=== PATIENT | female | born 1945 | race Caucasian/White ===

== ENCOUNTER → 2016-09-24 | Outpatient (CLI) | payer MEDICARE, BC | LOC: MC.RAD 09-21 09:20 | DX: Z12.31 Encounter for screening mammogram for malignant neoplasm of breast (principal); D24.2 Benign neoplasm of left breast; D24.1 Benign neoplasm of right breast ==

== ENCOUNTER → 2017-02-08 | Outpatient (CLI) | payer MEDICARE, BC | LOC: COL.RAD 13:23 | DX: N30.21 Other chronic cystitis with hematuria (principal); R18.8 Other ascites; R39.198 Other difficulties with micturition ==

== ENCOUNTER → 2017-10-03 | Outpatient (CLI) | payer MEDICARE, BC | LOC: MC.RAD 08:13 | DX: Z12.31 Encounter for screening mammogram for malignant neoplasm of breast (principal) ==

== ENCOUNTER 2018-01-05 10:30 | Outpatient (RCR) | payer MEDICARE, BC | END 2018-01-16 08:27 | disposition home or self-care (01) | LOC: WSPT 10:30 | DX: M25.512 Pain in left shoulder (principal) | CPT/HCPCS: G0283-GP; G8984-GP; G8985-GP; G8986-GP ==

== ENCOUNTER 2018-09-29 19:07 | Emergency (ER) | payer MEDICARE, BC ==
[~2018-09-29] VITALS: Ht 162.6 cm; Wt 72.7 kg
[2018-09-29 19:08] VITALS: TEMP 97.4
[2018-09-29 20:39] LABS: BASO # 0.1 (0.0-0.2); BASO % 0.8 % (0.0-2.0); EOS # 0.2 (0.0-0.7); EOS % 1.5 % (0-4.0); GRAN # 6.9 (1.4-6.5); GRAN % 57.8 % (42.2-75.2); HEMATOCRIT 38.8 % (37.0-47.0); HEMOGLOBIN 12.7 g/dl (12.5-16.0); LYMPH # 3.9 (1.2-3.4); LYMPH % 32.9 % (20.0-51.0); MEAN CELL VOLUME 93 fl (80.0-100.0); MEAN CORPUSCULAR HEMOGLOBIN 31 pg (27.0-31.0); MEAN CORPUSCULAR HGB CONC 33 g/dl (33.0-37.0); MEAN PLATELET VOLUME 10.5 fl (7.4-10.4); MONO # 0.7 (0.1-0.6); MONO % 6.2 % (1.7-9.3); PLATELET COUNT 284 K/mm3 (130-400); RED BLOOD COUNT 4.16 M/mm3 (4.10-5.30); REDCELL DISTRIBUTION WIDTH-CV 14.1 % (11.5-14.5)
[2018-09-29 20:46] LABS: ALBUMIN 3.9 gm/dL (3.5-5.0); BILIRUBIN,TOTAL 0.2 mg/dL (0.0-1.0); CALCIUM 8.8 mg/dL (8.4-10.2); CREATININE, serum 0.53 mg/dL (0.52-1.25); TOTAL PROTEIN 6.6 gm/dL (6.4-8.2)
[2018-09-29] MEDS ORDERED: PREDNISONE20 MG PO (21:13)
[2018-09-29] MEDS ORDERED: EPIPEN 2-PAK1 MG/ML IM (21:13)
[2018-09-29] MEDS ORDERED: K-DUR20 MEQ PO (21:13)
[2018-09-29 21:50] VITALS: BP 153/71; PULSE 102
== END 2018-09-29 21:50 | disposition home or self-care (01) ==
LOC: COL.ER 19:07
PROVIDERS: Emergency Medicine
DX: E11.65 Type 2 diabetes mellitus with hyperglycemia (principal); T78.1XXA Other adverse food reactions, not elsewhere classified, initial encounter; E87.6 Hypokalemia
CPT/HCPCS: J1815; J7030

== ENCOUNTER → 2018-10-20 | Outpatient (CLI) | payer MEDICARE, BC ==
[~2018-10-20] MED LIST: EPIPEN 2-PAK1 MG/ML IM; K-DUR20 MEQ PO; PREDNISONE20 MG PO
== END ==
LOC: MC.RAD 07:05
DX: Z12.31 Encounter for screening mammogram for malignant neoplasm of breast (principal)

== ENCOUNTER 2019-06-02 17:10 | Emergency (ER) | payer MEDICARE, BC ==
[~2019-06-02] VITALS: Ht 162.6 cm; Wt 72.7 kg
[2019-06-02 17:13] VITALS: TEMP 97.5
[2019-06-02 18:15] VITALS: BP 144/80
[2019-06-02] MEDS ORDERED: PREDNISONE20 MG PO (20:27)
[2019-06-02 20:35] VITALS: PULSE 94
== END 2019-06-02 20:30 | disposition home or self-care (01) ==
LOC: COL.ER 17:10
DX: T78.1XXA Other adverse food reactions, not elsewhere classified, initial encounter (principal); R06.02 Shortness of breath; R05 Cough; E11.9 Type 2 diabetes mellitus without complications
CPT/HCPCS: J1200; J2930; J7030; J7512

== ENCOUNTER 2019-07-02 14:15 | Outpatient (RCR) | payer MEDICARE, BC | END 2019-09-16 | disposition still patient (30) | LOC: WSC | DX: M25.512 Pain in left shoulder (principal) ==

== ENCOUNTER → 2020-02-04 | Outpatient (CLI) | payer MEDICARE, BC | LOC: MC.RAD 08:41 | DX: Z12.31 Encounter for screening mammogram for malignant neoplasm of breast (principal) ==

== ENCOUNTER → 2020-07-04 | Outpatient (CLI) | payer MEDICARE, BC | LOC: MC.RAD 14:00 | DX: N63.10 Unspecified lump in the right breast, unspecified quadrant (principal) ==

== ENCOUNTER → 2021-04-23 | Outpatient (CLI) | payer MEDICARE, BC | LOC: MC.RAD 13:15 | DX: Z12.31 Encounter for screening mammogram for malignant neoplasm of breast (principal) ==

== ENCOUNTER 2021-12-17 15:37 | Emergency (ER) | payer MEDICARE, BC ==
[~2021-12-17] VITALS: Ht 162.6 cm; Wt 72.7 kg
[2021-12-17 15:45] VITALS: TEMP 97.6
[2021-12-17 16:29] LABS: BASO # 0.1 K/mm3 (0.0-0.2); EOS # 0.1 K/mm3 (0.0-0.7); EOS % 1.3 % (0.0-4.0); GRAN # 6.5 K/mm3 (1.4-6.5); GRAN % 61.1 % (42.2-75.2); HEMATOCRIT 39.6 % (37.0-47.0); HEMOGLOBIN 12.6 g/dl (12.5-16.0); LYMPH # 3.2 K/mm3 (1.2-3.4); LYMPH % 29.7 % (20.0-51.0); MEAN CELL VOLUME 90 fl (80.0-100.0); MEAN CORPUSCULAR HEMOGLOBIN 29 pg (27-31); MEAN CORPUSCULAR HGB CONC 32 g/dl (33.0-37.0); MEAN PLATELET VOLUME 11.1 fl (7.4-10.4); MONO # 0.7 K/mm3 (0.1-0.6); MONO % 6.5 % (1.7-9.3); PLATELET COUNT 289 K/mm3 (130-400); RED BLOOD COUNT 4.42 M/mm3 (4.10-5.30); REDCELL DISTRIBUTION WIDTH-CV 14.6 % (11.5-14.5)
[2021-12-17 16:45] LABS: ALANINE AMINOTRANSFERASE 20 U/L (0-55); ALBUMIN 3.7 gm/dL (3.4-4.8); ALKALINE PHOSPHATASE 77 U/L (40-150); ANION GAP 16 mmol/L (7-16); AST,SGOT 17 U/L (5-34); BILIRUBIN,TOTAL 0.3 mg/dL (0.2-1.2); BLOOD UREA NITROGEN 17 mg/dL (10-20); CALCIUM 8.8 mg/dL (8.4-10.2); CARBON DIOXIDE 17 mmol/L (23-31); CHLORIDE 106 mmol/L (98-107); CREATININE, serum 0.69 mg/dL (0.57-1.11); GLUCOSE 211 mg/dL (70-99); POTASSIUM 4.2 mmol/L (3.5-4.5); SODIUM 139 mmol/L (136-145); TOTAL PROTEIN 7.2 gm/dL (6.2-8.1)
[2021-12-17 16:54] LABS: TROPONIN-I < 0.010 ng/mL (0.00-0.033)
[2021-12-17 16:55] LABS: INR 0.9 (0.8-3.0); PROTHROMBIN TIME 10.5 SECONDS (9.7-12.8)
[2021-12-17 16:57] LABS: PARTIAL THROMBOPLASTIN TIME 26.9 SECONDS (26.0-37.0)
[2021-12-17 18:00] VITALS: BP 118/63; PULSE 92
== END 2021-12-17 18:00 | disposition home or self-care (01) ==
LOC: COL.ER 15:37
PROVIDERS: Emergency Medicine
DX: R00.2 Palpitations (principal); R00.0 Tachycardia, unspecified

== ENCOUNTER → 2022-05-11 | Outpatient (CLI) | payer MEDICARE, BC | LOC: MC.RAD 13:04 | DX: Z12.31 Encounter for screening mammogram for malignant neoplasm of breast (principal) ==

== ENCOUNTER → 2023-06-14 | Outpatient (CLI) | payer MEDICARE, BC | LOC: CANSCHCLI → MC.RAD 10:08 | DX: Z12.31 Encounter for screening mammogram for malignant neoplasm of breast (principal) ==